=== PATIENT | male | born 1995 | race Hispanic/Latino ===

== ENCOUNTER 2017-09-24 11:55 | Observation (INO) | payer SELFPAY ==
[~2017-09-24] VITALS: Ht 170.2 cm; Wt 68.3 kg
[2017-09-24 13:32] LABS: HEMATOCRIT 40.4 % (38.0-50.0); HEMOGLOBIN 13.4 G/DL (12.5-16.6); MCH 29.6 PG (29.0-34.0); MCHC 33.2 G/DL (30.0-36.0); MCV 89.4 FL (86-99); PLATELET COUNT 303 K/uL (156-360); RBC DIS.WIDTH-CV 12.7 % (11.8-14.6); RBC DIS.WIDTH-SD 41.6 % (39-53); RED BLOOD COUNT 4.52 M/uL (4.00-5.50); WHITE BLOOD COUNT 6.5 K/uL (4.1-10.2)
[2017-09-24 13:39] LABS: CHLORIDE 104 mEq/L (99-109); POTASSIUM 4.1 mEq/L (3.7-5.4); SODIUM 140 mEq/L (136-147)
[2017-09-24 13:41] LABS: GLUCOSE 85 mg/dL (70-99)
[2017-09-24 13:45] LABS: CREATININE 0.7 mg/dL (0.6-1.3); GFR ESTIMATE (CALCULATED) > 59 mL/min/ (58.99-99999)
[2017-09-24 13:46] LABS: UREA NITROGEN (BUN) 11 mg/dL (9-23)
[2017-09-24] MEDS ORDERED: CHILD ASPIRIN81 M1 GT (16:30)
[2017-09-24] MEDS ORDERED: DOCU LIQUI50 MG/5 ML GT (16:31)
[2017-09-24] MEDS ORDERED: DULCOLAX10 MG PR (16:31)
[2017-09-24] MEDS ORDERED: KEPPRA100 MG/1 M GT (16:32)
[2017-09-24] MEDS ORDERED: LOPRESSOR50 MG GT (16:32)
[2017-09-24] MEDS ORDERED: PAIN RELIE160 MG/52 GT (16:32)
[2017-09-24] MEDS ORDERED: PEPCID40 MG/5 ML GT (16:33)
[2017-09-24] MEDS ORDERED: KETOCONAZOLE120 ML TP (16:33)
[2017-09-24 19:41] VITALS: BP 108/72
[2017-09-24 23:05] VITALS: BP 110/63
[2017-09-25 03:28] VITALS: BP 92/61
[2017-09-25 07:46] VITALS: BP 114/82
[2017-09-25 07:57] LABS: HEMOGLOBIN 12.5 G/DL (12.5-16.6); MCH 29.6 PG (29.0-34.0); MCHC 32.9 G/DL (30.0-36.0); PLATELET COUNT 292 K/uL (156-360); RBC DIS.WIDTH-CV 12.8 % (11.8-14.6); RBC DIS.WIDTH-SD 41.7 % (39-53); RED BLOOD COUNT 4.22 M/uL (4.00-5.50); WHITE BLOOD COUNT 6.2 K/uL (4.1-10.2)
[2017-09-25 11:36] VITALS: BP 112/70
[2017-09-25 15:37] VITALS: BP 117/76
[2017-09-25 19:25] VITALS: BP 120/65
[2017-09-25 23:43] VITALS: BP 118/69
[2017-09-26 03:33] VITALS: BP 109/56
[2017-09-26 07:36] VITALS: BP 94/52
[2017-09-26] MEDS ORDERED: LEVETIRACE100 MG/1 M GT (09:41)
[2017-09-26 11:01] VITALS: BP 114/68
== END 2017-09-26 12:22 ==
LOC: EME 11:55 → 5SOUTH 16:30 → EDOF 16:30 → ENRESERV 16:35 → 5SOUTH 19:04 → ENPENDDIS 09-26 10:42 → 5SOUTH 09-26 12:22
PROVIDERS: Emergency Medicine; Hospitalist
DX: G40.909 Epilepsy, unspecified, not intractable, without status epilepticus (principal); R09.02 Hypoxemia; Z87.820 Personal history of traumatic brain injury; Z93.0 Tracheostomy status; Z93.1 Gastrostomy status; M62.81 Muscle weakness (generalized); R29.818 Other symptoms and signs involving the nervous system; Z74.01 Bed confinement status; Z79.82 Long term (current) use of aspirin
CPT/HCPCS: 70450; 74018; 80048; 85027; 93005; 94799; 95819; 99202; 99281; 99285; G0378; J1644; J1953; J2060; J2250; J7030; J7050